=== PATIENT | male | born 1960 | race Two or more races ===

== ENCOUNTER 2016-10-22 07:10 | Day surgery (SDC) | payer OTHER ==
[~2016-10-22] VITALS: Ht 170.2 cm; Wt 67.6 kg
[2016-10-22 07:28] VITALS: BP 196/91
[2016-10-22 11:07] VITALS: BP 122/74
== END 2016-10-22 10:55 | disposition home or self-care (01) ==
LOC: DS 07:10 → GI 08:00 → OR 08:30 → GI 08:30 → DS 10:55
PROVIDERS: Internal Medicine Gastroenterology
PROC: 0DJD8ZZ Inspection of Lower Intestinal Tract, Via Natural or Artificial Opening Endoscopic (ICD-10-PCS; principal; 2016-10-22 08:00)
DX: Z12.11 Encounter for screening for malignant neoplasm of colon (principal); Z68.26 Body mass index [BMI] 26.0-26.9, adult
CPT/HCPCS: 45378; J1200; J1610; J2250; J2310; J3010; J3490